=== PATIENT | male | born 1995 | race Caucasian/White ===

== ENCOUNTER 2022-09-03 22:11 | Emergency (ER) | payer SELFPAY ==
[~2022-09-03] VITALS: Ht 160 cm; Wt 56.8 kg
[2022-09-03 23:13] VITALS: TEMP 98
[2022-09-04 00:37] VITALS: BP 111/69; PULSE 70
== END 2022-09-04 00:37 | disposition home or self-care (01) ==
LOC: COL.ER 22:11
DX: S91.331A Puncture wound without foreign body, right foot, initial encounter (principal); W45.8XXA Other foreign body or object entering through skin, initial encounter

== ENCOUNTER 2023-03-18 17:29 | Emergency (ER) | payer SELFPAY ==
[~2023-03-18] VITALS: Ht 162.6 cm; Wt 59.1 kg
[~2023-03-18 17:29] MED LIST: AMOXICILLIN 8751 TAB PO; DOXYCYCLINE 10100 MG PO
[2023-03-18 17:37] VITALS: TEMP 98.6
[2023-03-18] MEDS ORDERED: DOXYCYCLINE 10100 MG PO (20:05)
[2023-03-18] MEDS ORDERED: PREDNISONE50 MG PO (20:05)
[2023-03-18 20:11] VITALS: BP 115/71; PULSE 91
== END 2023-03-18 20:16 | disposition home or self-care (01) ==
LOC: COL.ER 17:29
DX: J44.1 Chronic obstructive pulmonary disease with (acute) exacerbation (principal); T48.6X6A Underdosing of antiasthmatics, initial encounter; Z91.128 Patient's intentional underdosing of medication regimen for other reason
CPT/HCPCS: J7512

== ENCOUNTER 2023-08-23 21:57 | Emergency (ER) | payer SELFPAY ==
[~2023-08-23] VITALS: Ht 160 cm; Wt 61.4 kg
[~2023-08-23 21:57] MED LIST changes: +PREDNISONE50 MG PO; +PROAIR HFA0.09 MG/AC IH
[2023-08-23 22:04] VITALS: TEMP 98.6
[2023-08-23 22:47] LABS: BASO # 0.1 K/mm3 (0.0-0.2); BASO % 0.7 % (0.0-2.0); EOS # 0.6 K/mm3 (0.0-0.7); EOS % 4.2 % (0.0-4.0); GRAN # 10.6 K/mm3 (1.4-6.5); GRAN % 77.3 % (42.2-75.2); HEMATOCRIT 44.1 % (42.0-52.0); HEMOGLOBIN 14.7 g/dl (13.5-18.0); LYMPH # 1.4 K/mm3 (1.2-3.4); LYMPH % 9.9 % (20.0-51.0); MEAN CELL VOLUME 88 fl (80.0-100.0); MEAN CORPUSCULAR HEMOGLOBIN 30 pg (27-31); MEAN CORPUSCULAR HGB CONC 33 g/dl (33.0-37.0); MEAN PLATELET VOLUME 8.8 fl (7.4-10.4); MONO # 1.1 K/mm3 (0.1-0.6); MONO % 7.7 % (1.7-9.3); PLATELET COUNT 237 K/mm3 (130-400); RED BLOOD COUNT 4.99 M/mm3 (4.20-5.60); REDCELL DISTRIBUTION WIDTH-CV 13.8 % (11.5-14.5)
[2023-08-23 23:00] LABS: ALANINE AMINOTRANSFERASE 13 U/L (0-55); ALBUMIN 3.9 gm/dL (3.5-5.0); ALKALINE PHOSPHATASE 55 U/L (40-150); ANION GAP 11 mmol/L (7-16); AST,SGOT 13 U/L (5-34); BILIRUBIN,TOTAL 0.4 mg/dL (0.2-1.2); BLOOD UREA NITROGEN 18 mg/dL (9-21); CALCIUM 9.5 mg/dL (8.4-10.2); CARBON DIOXIDE 21 mmol/L (22-29); CHLORIDE 110 mmol/L (98-107); CREATININE, serum 0.77 mg/dL (0.72-1.25); GLUCOSE 83 mg/dL (70-99); LIPASE 22 U/L (8-78); POTASSIUM 4.1 mmol/L (3.5-4.5); SODIUM 142 mmol/L (136-145); TOTAL PROTEIN 6.1 gm/dL (6.2-8.1)
[2023-08-23 23:09] LABS: TROPONIN-I < 0.010 ng/mL (0.00-0.033)
[2023-08-23] MEDS ORDERED: DOXYCYCLINE 10100 MG PO (23:23)
[2023-08-23] MEDS ORDERED: Doxycycline Monohydrate 100 MG CAP PO ONE (23:30)
[2023-08-24] MEDS ORDERED: AMOXICILLIN 8751 TAB PO (00:24)
[2023-08-24] MEDS ORDERED: Amoxicillin/Clavulanate K+ 875/125 MG TAB PO ONE (00:30)
[2023-08-24 00:50] VITALS: BP 103/62; PULSE 81
== END 2023-08-24 00:20 | disposition home or self-care (01) ==
LOC: COL.ER 21:57
PROVIDERS: Nurse Practitioner Primary Care
DX: J18.9 Pneumonia, unspecified organism (principal)